=== PATIENT | female | born 1990 | race Caucasian/White ===

== ENCOUNTER 2020-07-13 10:19 | Inpatient (IN) | payer BC, MEDICAID ==
[2020-07-13] MEDS: Lactated Ringer's 1,000 ML IV SCH (10:52)
[2020-07-13] MEDS ORDERED: hydrALAZINE 20 MG/ML VIAL SLOW IVP PRN ×2 (11:04→15:29)
[2020-07-13] MEDS ORDERED: CEFAZOLIN 2 GM in Premix Bag 1 BAG IVPB SCH (11:04)
[2020-07-13] MEDS ORDERED: Promethazine HCl 25 MG/ML VIAL IM PRN ×2 (11:04→12:59)
[2020-07-13] MEDS ORDERED: Bicitra 30 ML UDCUP PO PRN (11:04)
[2020-07-13] MEDS ORDERED: Famotidine/PF 20 mg/2ml Vial SLOW IVP PRN (11:04)
[2020-07-13] MEDS ORDERED: Ondansetron PF 4 MG/2 ML Vial IVP PRN ×3 (11:04→15:29)
[2020-07-13 11:20] LABS: Hemoglobin 11.6 g/dL (12.0-15.5); Mean Corpuscular HGB CONC 32.9 g/dL (32.0-36.0); Mean Corpuscular Hemoglobin 28.1 pg (27.0-33.0); Mean Corpuscular Volume 85.5 fl (81.6-98.3); Mean Platelet Volume 10.6 fl (7.4-10.4); Platelet Count 193 10x3/uL (150-450); Red Blood Cell (RBC) Count 4.13 10x6/uL (3.90-5.03); White Blood Cell (WBC) Count 12.7 10x3/uL (3.5-10.5)
[2020-07-13] MEDS ORDERED: Morphine PF 10 MG/10 ML VIAL ONE (11:44)
[2020-07-13] MEDS ORDERED: ePHEDrine Sulfate 50 MG/10 ML VIAL ONE (11:44)
[2020-07-13] MEDS ORDERED: Ketorolac Tromethamine 30 MG/ML VIAL ONE (11:44)
[2020-07-13] MEDS ORDERED: PHENYLEPHRINE-NS 100 MCG/ML 10 ML SYRINGE ONE (11:45)
[2020-07-13] MEDS ORDERED: Ondansetron PF 4 MG/2 ML Vial ONE (11:45)
[2020-07-13] MEDS ORDERED: Oxytocin 10 UNITS/ML VIAL ONE (11:45)
[2020-07-13 11:57] LABS: Hep B Surf Ag Non-Reactive S/CO (NonReactive)
[2020-07-13 11:58] LABS: Syphilis Antibody Nonreactive (Nonreactive)
[2020-07-13] MEDS ORDERED: Fentanyl 100 MCG/2 ML VIAL ONE (12:32)
[2020-07-13] MEDS ORDERED: Naloxone HCl 0.4 mg/ml Vial IVP PRN ×2 (12:59)
[2020-07-13] MEDS ORDERED: diphenhydrAMINE 50 MG/ML VIAL IVP PRN (12:59)
[2020-07-13] MEDS ORDERED: Naloxone HCl 0.4 mg/ml Vial IV PRN (12:59)
[2020-07-13] MEDS ORDERED: Ondansetron HCl/PF 4 MG/2 ML Vial IVP PRN (12:59)
[2020-07-13] MEDS ORDERED: Promethazine HCl 25 MG SUPP PR PRN (12:59)
[2020-07-13] MEDS ORDERED: L&D-Morphine 4 MG/ML VIAL SLOW IVP PRN (12:59)
[2020-07-13] MEDS ORDERED: Meperidine HCl/PF 25 MG/ML VIAL SLOW IVP PRN (12:59)
[2020-07-13] MEDS ORDERED: Communication Order-Pharmacy FS SCH (13:00)
[2020-07-13] MEDS ORDERED: HYDROmorphone 0.5 MG/0.5 ML SYRINGE SLOW IVP PRN (13:10)
[2020-07-13] MEDS ORDERED: Meperidine HCl/PF 25 MG/ML VIAL ONE (14:47)
[2020-07-13] MEDS ORDERED: Methylergonovine 0.2 MG/ML VIAL ONE (15:06)
[2020-07-13 15:29] VITALS: BMI 29.9
[2020-07-13] MEDS ORDERED: Adacel (T-DAP) 0.5 ML SYRINGE IM ONE (15:29)
[2020-07-13] MEDS ORDERED: Bisacodyl 10 MG SUPP PR PRN (15:29)
[2020-07-13] MEDS ORDERED: Lanolin Ointment 7 GM TUBE TOP PRN (15:29)
[2020-07-13] MEDS ORDERED: diphenhydrAMINE 25 MG CAP PO PRN (15:29)
[2020-07-13] MEDS ORDERED: HYDROcodone/Acetaminophen 5/325 mg Tablet PO PRN (15:29)
[2020-07-13] MEDS: Ibuprofen 800 MG TAB PO SCH (17:26)
[2020-07-13] MEDS: Ketorolac Tromethamine 30 MG/ML VIAL IVP PRN (18:01)
[2020-07-13] MEDS ORDERED: Ketorolac Tromethamine 30 MG/ML VIAL IVP SCH (19:00)
[2020-07-13] MEDS ORDERED: NS w/ Oxytocin 30 units 500 ML ONE (22:46)
[2020-07-14] MEDS: Ketorolac Tromethamine 30 MG/ML VIAL IVP PRN (00:01)
[2020-07-14] MEDS: Ibuprofen 800 MG TAB PO SCH ×3 (00:08→16:19)
[2020-07-14] MEDS: Ferrous Sulfate 325 MG TAB PO SCH ×3 (00:08→21:43)
[2020-07-14] MEDS: Lactated Ringer's 1,000 ML IV SCH (05:39)
[2020-07-14 06:19] LABS: Hemoglobin 10.7 g/dL (12.0-15.5); Mean Corpuscular HGB CONC 32.5 g/dL (32.0-36.0); Mean Corpuscular Volume 86.1 fl (81.6-98.3); Mean Platelet Volume 10.6 fl (7.4-10.4); Platelet Count 171 10x3/uL (150-450); Red Blood Cell (RBC) Count 3.82 10x6/uL (3.90-5.03)
[2020-07-14] MEDS: HYDROcodone/Acetaminophen 5/325 mg Tablet PO PRN ×3 (08:47→21:45)
[2020-07-14] MEDS: Simethicone Chewable 80 MG TAB PO PRN (08:47)
[2020-07-14] MEDS: Prenatal Vitamin 1 TAB PO SCH (08:47)
[2020-07-15] MEDS: Ibuprofen 800 MG TAB PO SCH ×3 (00:38→16:52)
[2020-07-15] MEDS: Prenatal Vitamin 1 TAB PO SCH (08:20)
[2020-07-15] MEDS: Simethicone Chewable 80 MG TAB PO PRN ×2 (08:20→13:50)
[2020-07-15] MEDS: Ferrous Sulfate 325 MG TAB PO SCH (08:38)
[2020-07-15] MEDS: HYDROcodone/Acetaminophen 5/325 mg Tablet PO PRN ×2 (09:31→13:50)
[2020-07-15 11:21] VITALS: BP 108/63; TEMP 98.4
== END 2020-07-15 17:30 | disposition home or self-care (01) | DRG 788 ==
LOC: CSHLD 10:19 → CSHPP 15:47
PROVIDERS: ADMIT Obstetrics & Gynecology; ATTEND Obstetrics & Gynecology
PROC: 10D00Z1 Extraction of Products of Conception, Low, Open Approach (ICD-10-PCS; principal; 2020-07-13)
DX: O34.211 Maternal care for low transverse scar from previous cesarean delivery (principal); O62.2 Other uterine inertia; O99.02 Anemia complicating childbirth; D64.9 Anemia, unspecified; Z3A.39 39 weeks gestation of pregnancy; Z37.0 Single live birth; Z20.822 Contact with and (suspected) exposure to COVID-19
CPT/HCPCS: 36415; 51702; 85027; 86780; 86850; 86900; 86901; 87340; J0690; J1885; J2175; J2210; J2270; J2405; J2590; J3010